=== PATIENT | male | born 1995 | race Two or more races ===

== ENCOUNTER 2017-01-14 00:19 | Emergency (ER) | payer OTHER ==
[~2017-01-14] VITALS: Ht 177.8 cm; Wt 88.5 kg
[2017-01-14] MEDS ORDERED: IBUPROFEN 600 MG TAB PO ONE (02:00)
[2017-01-14 02:43] VITALS: BP 132/76
== END 2017-01-14 02:44 | disposition home or self-care (01) ==
LOC: ER 00:25
DX: S93.401A Sprain of unspecified ligament of right ankle, initial encounter (principal); X50.1XXA Overexertion from prolonged static or awkward postures, initial encounter; Y93.89 Activity, other specified; Y99.8 Other external cause status; Y92.89 Other specified places as the place of occurrence of the external cause
CPT/HCPCS: 73610